=== PATIENT | male | born 1945 | race Caucasian/White ===

== ENCOUNTER 2024-12-08 08:53 | Emergency (ER) | payer MEDICARE, OTHER, SELFPAY ==
[2024-12-08 08:59] VITALS: BP 175/89
[2024-12-08 09:31] LABS: % Basophils 0.4 % (0-2); % Eosinophils 1.8 % (0-6); % Immature Granulocytes 0.4 % (0-0.5); % Lymphocytes 20.1 % (20.5-51.1); % Neutrophils 62.3 % (42.2-75.2); Absolute Eosinophils 0.1 10^3/uL (0-0.7); Absolute Monocytes 0.7 10^3/uL (0.1-0.6); Absolute Neutrophils 3.1 10^3/uL (1.4-6.5); Hematocrit 46.2 % (39.0-52.0); Hemoglobin 15.4 g/dL (13.0-18.0); Mean Corp Hgb Conc. 33.3 g/dL (33.0-37.0); Mean Corpuscular Hgb 30.7 pg (27.0-31.0); Mean Corpuscular Volume 92.2 fL (80.0-94.0); Mean Platelet Volume 10.3 fL (7.4-10.4); Nucleated Red Blood Cells % 0 % (-); Platelet Count 170 10^3/uL (130-400); Red Blood Cell Count 5.01 10^6/uL (4.70-6.10); Red Cell Dist. Width 13.7 % (11.5-14.5); White Blood Cell Count 4.9 10^3/uL (4.8-10.8)
[2024-12-08 09:49] LABS: ALT (SGPT) 18 U/L (0-50); AST (SGOT) 22 U/L (17-59); Albumin 4.2 g/dl (3.5-5.0); Alkaline Phosphatase 80 U/L (38-126); Blood Urea Nitrogen 26 mg/dl (9-20); Calcium 9.3 mg/dl (8.4-10.2); Carbon Dioxide 24 mmol/L (22-30); Chloride 113 mmol/L (98-107); Glucose 145 mg/dl (70-99); Potassium 4.3 mmol/L (3.5-5.1); Sodium 144 mmol/L (135-145); Total Protein 7.1 g/dl (6.3-8.2); eGFR > 60.00
[2024-12-08 09:59] LABS: Troponin I < 0.012 ng/ml
--- NOTE | 2024-12-08 11:33 | ED.GENMED ---
History of Present Illness
General
Chief Complaint: Chest Pain
Source: patient
Exam Limitations: none
Time Seen by Provider: 12/08/24 11:23
History of Present Illness
History of Present Illness:
79-year-old male complaining of intermittent episodes of back pain rating to the chest. Started yesterday while power washing. States it comes and goes. No shortness of breath no arm pain. Currently asymptomatic.
Past History
Past History
ED Past Medical History: CAD (AR/CAD), HTN, Hypercholesterolemia and Other (Pulmonary emboli. Parkinson's disease)
ED Past Surgical History: Cardiac (Circumflex stent 2007. Angioplasty stent 2019) and Cholecystectomy
Social History
Tobacco: Former smoker
Alcohol: Occasional
Drug: None
Personal:
Living: with family
Review of Systems
Review of Systems
All Other Systems: Not applicable
Respiratory: Reports no symptoms
ABD/GI: Reports no symptoms
Phy Exam
Physical Exam
Physical Exam:
GENERAL: Alert and oriented in no apparent distress
EYE: Orbits normal.
NECK: Supple
CARDIAC: Regular rate and rhythm without any obvious murmurs.
LUNGS: Clear breath sounds,normal
ABDOMEN: Soft, without focal tenderness or distention
NEUROLOGICAL: Alert and oriented , grossly non-focal. Mild sequela of Parkinson's
SKIN: Warm and dry, no rash or lesion, no discoloration, skin intact.
MUSCULOSKELETAL: No edema,no deformity.Good color
PSYCH: Normal and appropriate interaction.
Scores
Heart Score for Chest Pain Patients
STEMI patient?: No
History: Moderately Suspicious
ECG: Normal
Age: >/= 65 years
Risk Factors: >/= 3 Risk Factors or History of CAD
Troponin: </= Normal Limit
Heart Score for Chest Pain Patients: 5
Heart Score Risk: 20.3% MACE over next 6 weeks
Course
Orders/Labs/Results
Orders:
Orders
12/08/24 08:58
ECG [Electrocardiogram (*1)] Urgent
Reason for Study: Chest Pain
EKG- Treatment ONCE
12/08/24 09:08
Complete Blood Count/With Diff Urgent
Comprehensive Metabolic Panel Urgent
Troponin I Urgent
12/08/24 11:31
CT Chest Angio W/wo Iv Contras Urgent
Comment:
Reason For Exam: Back pain radiating to the chest
Cardiac Monitoring- Treatment ONCE
IV Insert/Care/Rem.- Treatment PRN
0.9% Sodium Chloride 500 ml [Nss] 500 ml IV BOLUS
12/08/24 14:12
Electrocardiogram (*1) Stat
Reason for Study: Other
Other Reason for Exam: chest pain
EKG- Treatment ONCE
12/08/24 14:49
Troponin I Urgent
Abnormal Lab Results
12/08/24
09:08
Absolute Lymphs (auto) 1.0 L 10^3/uL
(1.2-3.4)
Absolute Monos (auto) 0.7 H 10^3/uL
(0.1-0.6)
Lymphocytes % 20.1 L %
(20.5-51.1)
Monocytes % 15.0 H %
(1.7-9.3)
Chloride 113 H mmol/L
(98-107)
BUN 26 H mg/dl
(9-20)
Glucose 145 H mg/dl
(70-99)
12/08/24 09:08
12/08/24 09:08
Vital Signs
Initial and Last Documented VS:
Initial Vital Signs
Temp Pulse Resp BP Pulse Ox
97.9 F 63 16 175/89 98
12/08/24 08:59 12/08/24 08:59 12/08/24 08:59 12/08/24 08:59 12/08/24 08:59
Last Documented Vital Signs
Temp Pulse Resp BP Pulse Ox
97.9 F 61 16 173/82 98
12/08/24 08:59 12/08/24 16:14 12/08/24 16:14 12/08/24 16:16 12/08/24 11:37
MDM/Problems Addressed
Differential Diagnosis Includes:
Patient with known cardiac stenting with intermittent initially exertional upper back pain radiating to the chest since yesterday. Troponin negative. EKG with new nonspecific changes. Also will get CT angiography for dissection rule out.
Cardiology will evaluate.
*Pulse Oximetry
SaO2: 98
Oxygen Mode of Delivery: Room air
Patient hypoxic: no
*EKG
Interpreted by ED Provider?: Yes
Interpretation: abnormal
Comparison EKG: changes noted
Heart Rate: 71
Rate: normal
Rhythm: sinus and PVC's
[place]: normal axis
Interval: normal interval
QRS Pattern: right bundle branch block
Ischemia: other (New lateral infarct)
*Critical Care Note
Total Time (30-74mins, 75-104mins- exclusive of procedures): Not Applicable
Data Reviewed
Review of Other/Old Records Reveals: Labs, Records, Operative Reports, Testing and Discharge Summary
ED Attending Note
-
Portions of this chart may have been created with voice recognition software.� Occasional wrong word or��sound alike� substitutions may have occurred due to the inherent limitations of voice recognition software.
Discharge Plan
Departure
Patient Disposition: Home (Routine Discharge)
Date of Disposition: 12/08/24
Time of Disposition: 15:43
Patient with high blood pressure during this ER visit?: Yes
Condition: Good
Discharge Problem:
Chest pain
Instructions: Chest Pain NON-DHP Decal Applier Follow Up, BLOOD PRESSURE
Prescriptions:
No Action
clopidogrel 75 MG tablet
75 mg PO DAILY
lovastatin 40 MG tablet
40 mg PO QPM
aspirin 81 MG tablet,chewable
81 mg PO DAILY
finasteride 5 MG tablet
5 mg PO DAILY
cholecalciferol (vitamin D3) 2,000 UNITS tablet
2,000 units PO DAILY
flaxseed-omega3,6,9-fatty acid 1 EACH capsule
1 ea PO DAILY
losartan [Cozaar] 100 MG tablet
100 mg PO QPM
carvedilol 12.5 MG tablet
12.5 mg PO Daily
Patient Comments:
patient takes 12.5mg in AM and 25mg at HS
nitroglycerin 0.4 MG tablet, sublingual
0.4 mg sublingual [id number] PRN (Reason: chest pain) Qty: 25 2RF
carvedilol 12.5 MG tablet
25 mg PO HS
Patient Comments:
patient takes 12.5mg in AM and 25mg at HS
pantoprazole 40 MG tablet,delayed release (DR/EC)
40 mg PO DAILY Qty: 90 3RF
Referrals:
UNKNOWN - PT DOES,NOT KNOW [Family Provider]
Interventions
Interventions:
*Risk Screen - Suicide Last Done: 12/08/24 11:43
*General Assessment Last Done: 12/08/24 11:43
*Neglect/Abuse Screening Last Done: 12/08/24 11:43
*ED- Fall Risk Assessment Last Done: 12/08/24 11:43
*ED COVID-19 Vaccine History Last Done: 12/08/24 11:43
*Nursing Disposition Last Done: 12/08/24 18:41
ED- Cardiac Assessment Last Done: 12/08/24 16:00
Discharge Date and Time
Discharge Date/Time: 12/08/24 17:30
Print Language: PORTUGUESE
[2024-12-08 11:34] VITALS: BMI 28.6
[2024-12-08 11:35] VITALS: BP 134/70
[2024-12-08] MEDS: NSS 500 IV (11:49)
[2024-12-08 12:00] VITALS: BP 144/78
--- NOTE | 2024-12-08 12:22 | CON.CAR ---
Addendum entered and electronically signed by Gerson Wynn MD 12/08/24 15:23:
79 yo male with PMH of CAD, prior inferior FL, and multiple stents, last to Lcx 2019, ICM EF 35%, VT, ICD, Parkinson's presents to ED with neck and flank pain. He reports his neck feels tense like a spasm. He tries to stay active despite his
Parkinson's. He reports pain at rest and sometimes after activity; but not during activity. Exam with RRR, no murmurs, 1+ LE edema. EKG with sinus, A pacing, RBBB, inferior infarct. TnI <0.012. CTA: no aortic pathology.
Neck/flank pain. May be MSK. Not likely ACS. Repeat troponin. 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
Original Note:
Consultation
Consultation Request
Date/Time Consultation Requested: 12/08/24 1152
Date/Time Consultation Performed: 12/08/24 1230
Requesting Provider: Dr. Nj
Performing Provider: Julia SANCHEZ for Dr. Wynn
Reason for Consultation: back/neck discomfort, hx CAD
Medical History
-
Chief Complaint: back/neck discomfort
History of Present Illness:
79 y/o male (patient of [facility], Dr. Fabian) with CAD with hx FL and multiple stents (most recent 2018), ICM EF around 35%, ICD in place, HFrEF, Hx PE, HLD, HTN, VT, Parkinson's disease, and PE on Eliquis who is here for evaluation of back and neck
discomfort, which has been intermittent for a year, but worsened and he had it overnight intermittently and came in. Yesterday, he was power washing and gardening and afterward (not during) felt back and neck discomfort. It continued throughout the
night. No CP. He last saw Dr. Fabian about 1 month ago. He thinks he had a stress test about 6 months ago. Trop normal. EKG abnormal, but similar to some previous EKG's. He has no pain at the time of my assessment.
Past Medical History
Past Medical History: Arrhythmias, CAD, CHF, HTN, Hypercholesterolemia and FL
Social History
Tobacco: Former Smoker
Family History
Family History: Reviewed & Not Pertinent
Allergies / Home Medications
Allergy/AdvReac Type Severity Reaction Status Date / Time
ciprofloxacin (From Cipro) Allergy jaw and Verified 12/08/24 09:02
chest pain
ciprofloxacin HCl (From Allergy jaw and Verified 12/08/24 09:02
Cipro) chest pain
Penicillins Allergy Hives Verified 12/08/24 09:02
�Medication �Instructions �Recorded �Confirmed �Type
clopidogrel 75 mg tablet 75 mg PO DAILY 11/15/10 02/12/19 History
lovastatin 40 mg tablet 40 mg PO QPM 05/31/11 02/12/19 History
aspirin 81 mg chewable tablet 81 mg PO DAILY 02/12/19 02/12/19 History
carvedilol 12.5 mg tablet 12.5 mg PO Daily 02/12/19 02/13/19 History
cholecalciferol (vitamin D3) 50 2,000 units PO DAILY 02/12/19 02/12/19 History
mcg (2,000 unit) tablet
finasteride 5 mg tablet 5 mg PO DAILY 02/12/19 02/12/19 History
flaxseed oil-omega 3,6,9-fatty 1 ea PO DAILY 02/12/19 02/12/19 History
acids 1,300 mg-670 mg-155 mg
capsule
losartan 100 mg tablet (Cozaar) 100 mg PO QPM 02/12/19 02/12/19 History
nitroglycerin 0.4 mg sublingual 0.4 mg sublingual [id number] PRN 02/12/19 Rx
tablet chest pain #25 tabs
carvedilol 12.5 mg tablet 25 mg PO HS 02/13/19 02/13/19 History
pantoprazole 40 mg tablet,delayed 40 mg PO DAILY #90 tabs 02/13/19 Rx
release
Review of Systems
-
History Source: Patient
All other systems: Negative unless noted
Musculoskeletal: Other (neck and back pain)
Physical Exam
Vital Signs
Temp Pulse Resp BP Pulse Ox
97.9 F 89 17 134/70 98
12/08/24 08:59 12/08/24 11:35 12/08/24 11:32 12/08/24 11:35 12/08/24 11:37
Lab Results
12/08/24 09:08
12/08/24 09:08
Troponin I < 0.012 ng/ml 12/08/24 09:08
Physical Exam
General: Well Developed, Well Nourished and No Apparent Distress
HEENT: Normocephalic and Anicteric
Respiratory: Clear and Non Labored Respirations
Cardiac: Regular Rhythm
Musculoskeletal: No Edema
Skin: Warm and Dry
Neuro: AO x 3 and Other (slurred slow speech consistent with parkinson's)
Psych: Calm
Impression / Plan
-
Neck/back discomfort:
-trop normal, check another. Also repeat EKG. He denies CP and symptoms not exertional. He does not recall previous anginal symptoms.
-CTA pending
CAD with hx stenting:
-most recent cath as below
-continue ASA, statin, BB
-eval as above
-continue to follow with Dr. Fabian
ICM EF:
-32% on cath 2018, per OP chart 35-40%
-ICD in place
-on ARB and BB
-cont to follow with Dr. Fabian
HTN:
-stable
-continue usual meds
Hx PE:
-he does not have his med list, but tells me he is on Eliquis
Data:
cath 02/12/19: Systemic hypertension. Minimally elevated left and right heart filling pressures with borderline pulmonary hypertension. Inferior akinesis with EF 32%. Severe multivessel CAD. Flow wire assessment demonstrating the circumflex disease
to be flow-limiting. Successful stenting of long diseased circumflex segment using 3.0 x 38 Promus [place] with outstanding angiographic result. Interventional cardiology favored medical therapy for residual CAD-specifically, the ostial RCA technically
could be stented but the gain from this seems to be nonexistent as the distal RCA is occluded and the inferior wall is akinetic. Continue medical therapy for left ventricular dysfunction. Dominance: Right. Left Main: Normal. LAD: There is a patent
stent in the proximal LAD with mild stenosis. There are mild luminal irregularities throughout the LAD system with focal 40% distal stenosis. Circumflex: 40% proximal circumflex stenosis. There is a long entered segment in the mid circumflex with
several areas of stenosis to 70%. The distal obtuse marginal branches and posterolateral branch are widely patent. RCA: 80-90% ostial stenosis with marked pressure dampening on engagement. There is a stented segment in the proximal RCA which is
patent and the ostial lesion extends to the beginning of the stented segment. There is mild diffuse disease in the midportion of the RCA. The distal RCA is occluded proximal to the PDA. There are faint and incomplete collaterals to the distal RCA
territory.
Data Reviewed
-
EKG: Tracing Personally Visualized and interpreted (SR with RBBB, PVC, some a paced beats)
CT Scan: Other (pending)
Medical Tests (Nuc Med, Echo etc): Report Reviewed by me (cath report ad noted)
Labs: Labs Reviewed by me
[2024-12-08 15:22] LABS: Troponin I < 0.012 ng/ml
[2024-12-08 16:16] VITALS: BP 173/82
== END 2024-12-08 17:30 | disposition home or self-care (01) ==
LOC: EMR 08:53
PROVIDERS: EMERGENCY PHYSICIAN Emergency Medicine; OTHER PHYSICIAN Internal Medicine
DX: R07.9 Chest pain, unspecified (principal); M54.9 Dorsalgia, unspecified; E78.00 Pure hypercholesterolemia, unspecified; G20.A1 Parkinson's disease without dyskinesia, without mention of fluctuations; I11.0 Hypertensive heart disease with heart failure; I50.22 Chronic systolic (congestive) heart failure; I25.2 Old myocardial infarction; I25.10 Atherosclerotic heart disease of native coronary artery without angina pectoris; I45.10 Unspecified right bundle-branch block; I49.3 Ventricular premature depolarization; Z79.01 Long term (current) use of anticoagulants; Z79.899 Other long term (current) drug therapy; Z86.711 Personal history of pulmonary embolism; Z87.891 Personal history of nicotine dependence; Z95.5 Presence of coronary angioplasty implant and graft; Z95.810 Presence of automatic (implantable) cardiac defibrillator
CPT/HCPCS: 99284; 96360; 96361; 71275; 80053; 84484; 85025; 93005; Q9967